=== PATIENT | female | born 1955 | race Caucasian/White ===

== ENCOUNTER 2018-10-14 09:05 | Inpatient (IN) | payer MEDICAID, OTHER ==
[~2018-10-14] VITALS: Ht 157.5 cm; Wt 60.8 kg
[2018-10-14] MEDS ORDERED: OSEL30CA PO (09:20)
[2018-10-14] MEDS ORDERED: PROSOL IH (09:20)
[2018-10-14] MEDS ORDERED: ACETAMINOPHEN 325MG TABLET PO STA (10:36)
[2018-10-14] MEDS ORDERED: ONDANSETRON HCL 4MG/2ML INJ IV STA (10:36)
[2018-10-14] MEDS ORDERED: SODIUM CHLORIDE 0.9% 1,000 ML IV ONE (10:36)
[2018-10-14] MEDS ORDERED: KETOROLAC 30MG/ML VIAL IV STA (10:36)
[2018-10-14] MEDS ORDERED: SODIUM CHLORIDE 0.9% 1000ML BAG (SEPSIS BOLUS) IV ONE (10:45)
[2018-10-14 10:47] LABS: BASOPHILS % 0.2 % (0.0-2.0); EOSINOPHILS % 0.4 % (0.0-5.0); HEMATOCRIT. 46.9 % (36.0-48.0); LYMPHOCYTES % 12.7 % (20.0-50.0); MEAN CORPUSCULAR HEMOGLOBIN 31.1 pg (28.0-32.0); MEAN CORPUSCULAR VOLUME 91.2 fL (81.0-99.0); MEAN PLATELET VOLUME 9.3 fl (7.4-10.4); MONOCYTES % 9.2 % (2.0-8.0); NEUTROPHILS % 77.5 % (40.0-76.0); PLATELET 203 x1000/uL (130-400); RED BLOOD CELL COUNT 5.15 mill/uL (4.2-5.4); RED CELL DISTRIBUTION WIDTH 12.5 % (11.6-14.6)
[2018-10-14 10:51] LABS: CHLORIDE 102 mEq/L (98-107)
[2018-10-14 10:55] LABS: ETHANOL BLOOD < 10 mg/dL
[2018-10-14 10:58] LABS: CLARITY URINE TURBID (CLEAR); COLOR URINE DARK YELLOW (YELLOW); KETONES URINE NEGATIVE (NEGATIVE); LEUKOCYTE ESTERASE URINE 1+ (NEGATIVE); NITRITE URINE NEGATIVE (NEGATIVE); OCCULT BLOOD URINE 1+ (NEGATIVE); PH URINE 5.5 (4.5-8.0); PROTEIN URINE 2+ (NEGATIVE); SPECIFIC GRAVITY URINE 1.019 (1.005-1.030)
[2018-10-14 11:01] LABS: CREATINE KINASE 164 IU/L (26-192)
[2018-10-14 11:29] LABS: *AMPHETAMINES SCREEN URINE NEGATIVE (NEGATIVE); *BARBITURATES SCREEN URINE NEGATIVE (NEGATIVE); *BENZODIAZEPINES SCREEN URINE NEGATIVE (NEGATIVE); *COCAINE SCREEN URINE NEGATIVE (NEGATIVE); CANNABINOID URINE SCREEN NEGATIVE (NEGATIVE); METHADONE URINE SCREEN NEGATIVE (NEGATIVE); OPIATES URINE SCREEN NEGATIVE (NEGATIVE); PHENCYCLIDINE URINE SCREEN NEGATIVE (NEGATIVE)
[2018-10-14] MEDS ORDERED: VANCOMYCIN 1 G PREMIX 200 ML IV SCH (12:00)
[2018-10-14] MEDS ORDERED: PIPERACILLIN/TAZ 3.375G PREMIX 50 ML IV ONE (12:00)
[2018-10-14 13:07] LABS: INR 1.1; PROTHROMBIN TIME 11.4 sec (9.1-11.1)
[2018-10-14] MEDS ORDERED: IOHEXOL-350 100 ML BOTTLE ONE (13:38)
[2018-10-14 16:30] VITALS: BP 132/75
[2018-10-14] MEDS ORDERED: FUROSEMIDE 40MG/4ML VIAL IVP NR (16:45)
[2018-10-14] MEDS ORDERED: POTASSIUM CHLORIDE 20MEQ TABLET SR PO NR (16:45)
[2018-10-14] MEDS ORDERED: ONDANSETRON HCL 4MG/2ML INJ IV PRN (16:45)
[2018-10-14] MEDS ORDERED: GUAIFENESIN 200MG/10ML SUGAR FREE UDC PO PRN (16:45)
[2018-10-14 16:46] VITALS: BP 132/75
[2018-10-14] MEDS ORDERED: IPRATROPIUM/ALBUTEROL 0.5-3(2.5)MG/3ML NEB HHN PRN (17:15)
[2018-10-14 17:23] LABS: HEPATITIS B SURFACE ANTIGEN NEGATIVE
[2018-10-14 17:52] LABS: HEPATITIS A AB IGM NEGATIVE (NEGATIVE)
[2018-10-14 18:20] LABS: BG BASE EXCESS 1.8 mmol/L (-2.0-2.0); BG CARBOXYHEMOGLOBIN 1.8 % (0.5-1.5); BG DEOXYHEMOGLOBIN 24.1 % (0.0-5.0); BG FRACTION INSPIRED OXYGEN 21; BG HCO3 ACT 28.5 mmol/L (22.0-26.0); BG METHEMOGLOBIN 0.4 % (0.0-1.5); BG OXYGEN SATURATION 75.4 % (92.0-98.5); BG OXYHEMOGLOBIN 73.7 % (94.0-97.0); BG PCO2 51.9 mmHg (35.0-45.0); BG PH 7.357 (7.350-7.450); BG PO2 36.8 mmHg (75.0-100.0); BG SAMPLE SITE LEFT RADIAL; BG TOTAL HEMOGLOBIN 15.9 g/dL (12.0-18.0); BG VENT MODE ROOM AIR
[2018-10-14] MEDS: MONTELUKAST SODIUM 10MG TABLET PO SCH (18:45)
[2018-10-14] MEDS: GUAIFENESIN-DM 200MG-20MG/10ML UDC PO PRN ×2 (18:45→18:50)
[2018-10-14] MEDS: ENOXAPARIN 40MG/0.4ML SYR SUBCUT SCH (18:50)
[2018-10-14] MEDS: NICOTINE 14MG PATCH TD SCH (18:50)
[2018-10-14] MEDS: PIPERACILLIN/TAZ 3.375G PREMIX 50 ML IV SCH (19:09)
[2018-10-14 20:00] VITALS: BP 117/69
[2018-10-14] MEDS: IPRATROPIUM/ALBUTEROL 0.5-3(2.5)MG/3ML NEB HHN SCH (20:21)
[2018-10-14] MEDS: BUDESONIDE 0.5MG/2ML NEB HHN SCH (20:21)
[2018-10-15] VITALS: BP 110/62
[2018-10-15] MEDS: IPRATROPIUM/ALBUTEROL 0.5-3(2.5)MG/3ML NEB HHN SCH ×6 (00:40→22:04)
[2018-10-15] MEDS: ACETAMINOPHEN 325MG TABLET PO PRN (03:53)
[2018-10-15] MEDS: GUAIFENESIN-DM 200MG-20MG/10ML UDC PO PRN (03:56)
[2018-10-15] MEDS: PIPERACILLIN/TAZ 3.375G PREMIX 50 ML IV SCH ×4 (03:59→18:23)
[2018-10-15 04:00] VITALS: BP 107/65
[2018-10-15 07:04] LABS: BASOPHILS % 0.3 % (0.0-2.0); EOSINOPHILS % 0.7 % (0.0-5.0); HEMATOCRIT. 41.3 % (36.0-48.0); HEMOGLOBIN. 14.1 g/dL (12.0-16.0); LYMPHOCYTES % 14.7 % (20.0-50.0); MEAN CORPUSCULAR HEMOGLOBIN 31.2 pg (28.0-32.0); MEAN CORPUSCULAR VOLUME 91.1 fL (81.0-99.0); MEAN PLATELET VOLUME 9.6 fl (7.4-10.4); MONOCYTES % 7.6 % (2.0-8.0); NEUTROPHILS % 76.7 % (40.0-76.0); PLATELET 247 x1000/uL (130-400); RED BLOOD CELL COUNT 4.53 mill/uL (4.2-5.4); RED CELL DISTRIBUTION WIDTH 13.1 % (11.6-14.6)
[2018-10-15 07:20] LABS: CHLORIDE 101 mEq/L (98-107)
[2018-10-15] MEDS: BUDESONIDE 0.5MG/2ML NEB HHN SCH ×2 (08:39→22:04)
[2018-10-15] MEDS: NICOTINE 14MG PATCH TD SCH (09:01)
[2018-10-15 09:40] LABS: BG CARBOXYHEMOGLOBIN 1.2 % (0.5-1.5); BG FRACTION INSPIRED OXYGEN 21; BG HCO3 ACT 31.2 mmol/L (22.0-26.0); BG METHEMOGLOBIN 0.1 % (0.0-1.5); BG OXYGEN SATURATION 80.7 % (92.0-98.5); BG OXYHEMOGLOBIN 79.7 % (94.0-97.0); BG PCO2 47.3 mmHg (35.0-45.0); BG PH 7.437 (7.350-7.450); BG PO2 39.8 mmHg (75.0-100.0); BG SAMPLE SITE RIGHT BRACHIAL; BG TOTAL HEMOGLOBIN 13.8 g/dL (12.0-18.0); BG VENT MODE ROOM AIR
[2018-10-15 12:00] VITALS: BP 102/52
[2018-10-15] MEDS ORDERED: POTASSIUM CHLORIDE INJ 40 MEQ in SODIUM CHLORIDE 0.9% 230 ML IV NR (14:30)
[2018-10-15 16:00] VITALS: BP 111/54
[2018-10-15] MEDS: ENOXAPARIN 40MG/0.4ML SYR SUBCUT SCH (18:22)
[2018-10-15] MEDS: MONTELUKAST SODIUM 10MG TABLET PO SCH (18:23)
[2018-10-15 20:00] VITALS: BP 129/70
[2018-10-15] MEDS: POTASSIUM CHLORIDE 20MEQ TABLET SR PO SCH (21:26)
[2018-10-16] VITALS: BP 105/82
[2018-10-16] MEDS: PIPERACILLIN/TAZ 3.375G PREMIX 50 ML IV SCH ×3 (01:12→12:05)
[2018-10-16 04:00] VITALS: BP 130/81
[2018-10-16] MEDS: IPRATROPIUM/ALBUTEROL 0.5-3(2.5)MG/3ML NEB HHN SCH ×5 (05:20→21:08)
[2018-10-16 07:52] VITALS: BP 131/73
[2018-10-16] MEDS: NICOTINE 14MG PATCH TD SCH (09:29)
[2018-10-16] MEDS: POTASSIUM CHLORIDE 20MEQ TABLET SR PO SCH ×2 (09:29→21:13)
[2018-10-16] MEDS: BUDESONIDE 0.5MG/2ML NEB HHN SCH ×2 (09:52→21:09)
[2018-10-16 09:54] LABS: HEMATOCRIT. 39.1 % (36.0-48.0); HEMOGLOBIN. 13.3 g/dL (12.0-16.0); MEAN CORPUSCULAR HEMOGLOBIN 30.9 pg (28.0-32.0); MEAN CORPUSCULAR VOLUME 91.1 fL (81.0-99.0); MEAN PLATELET VOLUME 9.1 fl (7.4-10.4); PLATELET 279 x1000/uL (130-400); RED CELL DISTRIBUTION WIDTH 12.8 % (11.6-14.6)
[2018-10-16 10:04] LABS: CHLORIDE 104 mEq/L (98-107)
[2018-10-16 12:17] VITALS: BP 122/63
[2018-10-16 16:20] LABS: ATYPICAL LYMPHOCYTES 2; PLATELET ESTIMATE NORMAL
[2018-10-16 16:27] VITALS: BP 144/66
[2018-10-16] MEDS: LEVOFLOXACIN 750MG PREMIX 150 ML IV SCH (17:59)
[2018-10-16] MEDS: ENOXAPARIN 40MG/0.4ML SYR SUBCUT SCH (17:59)
[2018-10-16] MEDS: MONTELUKAST SODIUM 10MG TABLET PO SCH (17:59)
[2018-10-16 20:00] VITALS: BP 143/75
[2018-10-17] VITALS: BP 135/86
[2018-10-17] MEDS: ACETYLCYSTEINE 100MG/ML 10% VIAL 4ML INH SCH (00:56)
[2018-10-17] MEDS: IPRATROPIUM/ALBUTEROL 0.5-3(2.5)MG/3ML NEB HHN SCH ×5 (00:56→21:06)
[2018-10-17] MEDS: ACETAMINOPHEN 325MG TABLET PO PRN ×2 (03:02→09:19)
[2018-10-17 04:00] VITALS: BP 132/66
[2018-10-17 06:08] LABS: HEMATOCRIT. 38.3 % (36.0-48.0); HEMOGLOBIN. 12.9 g/dL (12.0-16.0); MEAN CORPUSCULAR HEMOGLOBIN 30.8 pg (28.0-32.0); MEAN CORPUSCULAR VOLUME 91.3 fL (81.0-99.0); MEAN PLATELET VOLUME 8.7 fl (7.4-10.4); PLATELET 283 x1000/uL (130-400)
[2018-10-17 07:36] LABS: CHLORIDE 102 mEq/L (98-107)
[2018-10-17 08:00] VITALS: BP 134/74
[2018-10-17] MEDS: BUDESONIDE 0.5MG/2ML NEB HHN SCH ×2 (08:00→21:03)
[2018-10-17] MEDS: POTASSIUM CHLORIDE 20MEQ TABLET SR PO SCH ×2 (09:20→20:46)
[2018-10-17] MEDS: NICOTINE 14MG PATCH TD SCH (09:20)
[2018-10-17 09:35] LABS: BG BASE EXCESS 2.3 mmol/L (-2.0-2.0); BG CARBOXYHEMOGLOBIN 1.2 % (0.5-1.5); BG DEOXYHEMOGLOBIN 17.7 % (0.0-5.0); BG FRACTION INSPIRED OXYGEN 21; BG HCO3 ACT 26.5 mmol/L (22.0-26.0); BG METHEMOGLOBIN 0.1 % (0.0-1.5); BG OXYGEN SATURATION 82.1 % (92.0-98.5); BG PCO2 39.8 mmHg (35.0-45.0); BG PH 7.441 (7.350-7.450); BG PO2 42.6 mmHg (75.0-100.0); BG SAMPLE SITE RIGHT RADIAL; BG TOTAL HEMOGLOBIN 14.2 g/dL (12.0-18.0); BG VENT MODE ROOM AIR
[2018-10-17] MEDS: GUAIFENESIN-DM 200MG-20MG/10ML UDC PO PRN (10:14)
[2018-10-17 11:39] LABS: PLATELET ESTIMATE NORMAL
[2018-10-17 12:16] VITALS: BP 134/69
[2018-10-17 16:00] VITALS: BP 148/80
[2018-10-17] MEDS: ENOXAPARIN 40MG/0.4ML SYR SUBCUT SCH (16:39)
[2018-10-17] MEDS: LEVOFLOXACIN 750MG PREMIX 150 ML IV SCH (16:39)
[2018-10-17] MEDS: MONTELUKAST SODIUM 10MG TABLET PO SCH (16:39)
[2018-10-17 20:00] VITALS: BP 137/77
[2018-10-17] MEDS: BLOOD SUGAR DIAGNOSTIC STRIP TEST SCH (23:08)
[2018-10-18] VITALS: BP 138/77
[2018-10-18] MEDS: ACETYLCYSTEINE 100MG/ML 10% VIAL 4ML INH SCH (00:09)
[2018-10-18] MEDS: IPRATROPIUM/ALBUTEROL 0.5-3(2.5)MG/3ML NEB HHN SCH ×6 (00:09→20:22)
[2018-10-18] MEDS: ACETAMINOPHEN 325MG TABLET PO PRN (00:36)
[2018-10-18 04:00] VITALS: BP 121/75
[2018-10-18] MEDS: BLOOD SUGAR DIAGNOSTIC STRIP TEST SCH ×2 (06:00→14:00)
[2018-10-18 06:50] LABS: HEMATOCRIT. 39.1 % (36.0-48.0); HEMOGLOBIN. 13.1 g/dL (12.0-16.0); MEAN CORPUSCULAR HEMOGLOBIN 30.8 pg (28.0-32.0); MEAN CORPUSCULAR VOLUME 91.6 fL (81.0-99.0); MEAN PLATELET VOLUME 8.8 fl (7.4-10.4); PLATELET 291 x1000/uL (130-400); RED BLOOD CELL COUNT 4.27 mill/uL (4.2-5.4)
[2018-10-18 06:54] LABS: CHLORIDE 103 mEq/L (98-107)
[2018-10-18] MEDS: NICOTINE 14MG PATCH TD SCH (08:27)
[2018-10-18] MEDS: POTASSIUM CHLORIDE 20MEQ TABLET SR PO SCH ×2 (08:28→20:32)
[2018-10-18 12:00] VITALS: BP_SYST 102; BP_SYST 136; BP_DIAS 70; BP_DIAS 77
[2018-10-18 13:46] LABS: PLATELET ESTIMATE NORMAL
[2018-10-18] MEDS: LEVOFLOXACIN 750MG PREMIX 150 ML IV SCH (15:33)
[2018-10-18 15:54] LABS: BG BASE EXCESS 2.8 mmol/L (-2.0-2.0); BG CARBOXYHEMOGLOBIN 1.4 % (0.5-1.5); BG FRACTION INSPIRED OXYGEN 21; BG HCO3 ACT 26.5 mmol/L (22.0-26.0); BG METHEMOGLOBIN 0.2 % (0.0-1.5); BG OXYGEN SATURATION 88.8 % (92.0-98.5); BG OXYHEMOGLOBIN 87.4 % (94.0-97.0); BG PCO2 37.9 mmHg (35.0-45.0); BG PH 7.463 (7.350-7.450); BG PO2 50.5 mmHg (75.0-100.0); BG SAMPLE SITE LEFT RADIAL; BG TOTAL HEMOGLOBIN 14.2 g/dL (12.0-18.0); BG VENT MODE ROOM AIR
[2018-10-18 16:00] VITALS: BP 141/78
[2018-10-18] MEDS: ENOXAPARIN 40MG/0.4ML SYR SUBCUT SCH (16:38)
[2018-10-18] MEDS: MONTELUKAST SODIUM 10MG TABLET PO SCH (16:38)
[2018-10-18 20:00] VITALS: BP 138/62
[2018-10-19] VITALS: BP 136/65
[2018-10-19] MEDS: IPRATROPIUM/ALBUTEROL 0.5-3(2.5)MG/3ML NEB HHN SCH ×4 (00:54→12:15)
[2018-10-19 04:00] VITALS: BP 132/67
[2018-10-19] MEDS: BLOOD SUGAR DIAGNOSTIC STRIP TEST SCH (05:46)
[2018-10-19 06:59] LABS: HEMATOCRIT. 39.6 % (36.0-48.0); MEAN CORPUSCULAR HEMOGLOBIN 30.3 pg (28.0-32.0); MEAN CORPUSCULAR VOLUME 92.1 fL (81.0-99.0); MEAN PLATELET VOLUME 8.4 fl (7.4-10.4); PLATELET 315 x1000/uL (130-400); RED CELL DISTRIBUTION WIDTH 13.3 % (11.6-14.6)
[2018-10-19 07:06] LABS: CHLORIDE 103 mEq/L (98-107)
[2018-10-19 08:00] VITALS: BP 123/71
[2018-10-19] MEDS: POTASSIUM CHLORIDE 20MEQ TABLET SR PO SCH (09:29)
[2018-10-19] MEDS: NICOTINE 14MG PATCH TD SCH (09:29)
[2018-10-19 13:51] LABS: PLATELET ESTIMATE NORMAL
[2018-10-19 14:54] VITALS: BP 123/71
== END 2018-10-19 15:30 | disposition home or self-care (01) | DRG 720 ==
LOC: ER 09:20 → 5WST 12:40 → EDBEDREQTM 12:44 → EDBEDREQSVC 12:44 → EDBEDREQ 12:44 → ENRESERV 14:20
PROVIDERS: ADMIT Internal Medicine Geriatric Medicine; ATTEND Internal Medicine Geriatric Medicine
DX: A41.9 Sepsis, unspecified organism (principal); J96.00 Acute respiratory failure, unspecified whether with hypoxia or hypercapnia; J18.9 Pneumonia, unspecified organism; Z99.81 Dependence on supplemental oxygen; E44.0 Moderate protein-calorie malnutrition; J98.9 Respiratory disorder, unspecified; Z68.26 Body mass index [BMI] 26.0-26.9, adult; R74.0 Nonspecific elevation of levels of transaminase and lactic acid dehydrogenase [LDH]; R17 Unspecified jaundice; F17.210 Nicotine dependence, cigarettes, uncomplicated; E11.9 Type 2 diabetes mellitus without complications; N39.0 Urinary tract infection, site not specified; I25.10 Atherosclerotic heart disease of native coronary artery without angina pectoris; E87.6 Hypokalemia; I25.2 Old myocardial infarction; Z80.9 Family history of malignant neoplasm, unspecified; Z86.73 Personal history of transient ischemic attack (TIA), and cerebral infarction without residual deficits; Z98.891 History of uterine scar from previous surgery; Z90.49 Acquired absence of other specified parts of digestive tract; A49.8 Other bacterial infections of unspecified site; J44.9 Chronic obstructive pulmonary disease, unspecified
CPT/HCPCS: 36415; 36600; 71045; 71275; 76700; 80048; 80305; 82375; 82550; 82805; 82962; 83036; 83605; 83735; 83880; 84145; 84484; 86705; 86709; 86803; 86850; 86900; 87070; 87077; 87186; 87340; 87804; 93005; 93306; 93970; 94640; 94667; 96365; 96375; 97161; 99285; C1893; G0482; J1650; J1885; J1940; J1956; J2405; J2543; J3370; J3480; J7030; J7050; J7608; J7620; J7626; Q9967

== ENCOUNTER 2022-08-03 12:34 | Inpatient (IN) | payer MEDICAID, MEDICARE ==
[~2022-08-03] VITALS: Ht 160 cm; Wt 58.6 kg
[~2022-08-03 12:34] MED LIST: OSEL30CA PO; PROSOL IH
[2022-08-03] MEDS ORDERED: ATORVASTATIN CALCIUM 40MG TABLET PO SCH (13:15)
[2022-08-03] MEDS ORDERED: ASPIRIN 325MG TABLET PO NR (13:15)
[2022-08-03] MEDS ORDERED: IOHEXOL-350 100 ML BOTTLE ONE (13:56)
[2022-08-03 14:22] LABS: BASOPHILS % 0.2 % (0.0-2.0); EOSINOPHILS % 2.5 % (0.0-5.0); HEMATOCRIT. 50.3 % (36.0-48.0); HEMOGLOBIN. 17.3 g/dL (12.0-16.0); MEAN CORPUSCULAR VOLUME 90.1 fL (81.0-99.0); MEAN PLATELET VOLUME 8.5 fl (7.4-10.4); MONOCYTES % 6.1 % (2.0-8.0); NEUTROPHILS % 52.2 % (40.0-76.0); PLATELET 205 x1000/uL (130-400); RED BLOOD CELL COUNT 5.58 mill/uL (4.2-5.4); RED CELL DISTRIBUTION WIDTH 12.6 % (11.6-14.6)
[2022-08-03 14:28] LABS: CHLORIDE 103 mEq/L (98-107)
[2022-08-03 14:34] LABS: CLARITY URINE CLEAR (CLEAR); COLOR URINE YELLOW (YELLOW); KETONES URINE NEGATIVE (NEGATIVE); LEUKOCYTE ESTERASE URINE TRACE (NEGATIVE); NITRITE URINE NEGATIVE (NEGATIVE); OCCULT BLOOD URINE NEGATIVE (NEGATIVE); PH URINE 7.5 (4.5-8.0); PROTEIN URINE NEGATIVE (NEGATIVE); SPECIFIC GRAVITY URINE 1.018 (1.005-1.030)
[2022-08-03 14:38] LABS: ETHANOL BLOOD < 10 mg/dL
[2022-08-03 15:00] LABS: *AMPHETAMINES SCREEN URINE NEGATIVE (NEGATIVE); *BARBITURATES SCREEN URINE NEGATIVE (NEGATIVE); *BENZODIAZEPINES SCREEN URINE NEGATIVE (NEGATIVE); *COCAINE SCREEN URINE NEGATIVE (NEGATIVE); CANNABINOID URINE SCREEN NEGATIVE (NEGATIVE); METHADONE URINE SCREEN NEGATIVE (NEGATIVE); OPIATES URINE SCREEN NEGATIVE (NEGATIVE); PHENCYCLIDINE URINE SCREEN NEGATIVE (NEGATIVE)
[2022-08-03] MEDS ORDERED: CLOPIDOGREL 75MG TABLET PO NR (15:30)
[2022-08-03 20:00] VITALS: BP 163/74
[2022-08-03] MEDS ORDERED: DEXTROSE 50% WATER 50ML SYRINGE IV PRN (21:15)
[2022-08-03] MEDS ORDERED: PNEUMOCOCCAL 23-VAL P-SAC VAC 0.5 ML IM ONE (23:30)
[2022-08-04] VITALS: BP 127/67
[2022-08-04] MEDS ORDERED: ACETAMINOPHEN 325MG TABLET PO PRN ×2 (00:30)
[2022-08-04] MEDS ORDERED: CLONIDINE 0.1MG TABLET PO PRN (00:30)
[2022-08-04] MEDS ORDERED: MAGNESIUM/ALUMINUM HYDROXIDE/SIMETHICONE 30ML UDC PO PRN (00:30)
[2022-08-04] MEDS ORDERED: DIPHENHYDRAMINE 50MG/ML VIAL IV PRN (00:30)
[2022-08-04] MEDS ORDERED: DEXTROSE 50% WATER 50ML SYRINGE IV PRN (00:30)
[2022-08-04] MEDS ORDERED: ZOLPIDEM TARTRATE 5MG TABLET PO PRN (00:30)
[2022-08-04] MEDS ORDERED: ONDANSETRON HCL 4MG/2ML INJ IV PRN (00:30)
[2022-08-04 04:00] VITALS: BP 137/87
[2022-08-04] MEDS: SODIUM CHLORIDE 0.9% INJ 3ML FLUSH IVF SCH ×3 (06:10→21:52)
[2022-08-04] MEDS: BLOOD SUGAR DIAGNOSTIC STRIP TEST SCH ×4 (06:10→21:20)
[2022-08-04] MEDS ORDERED: BLOOD SUGAR DIAGNOSTIC STRIP TEST SCH (07:40)
[2022-08-04 08:00] VITALS: BP 136/60
[2022-08-04] MEDS ORDERED: INSULIN LISPRO 100 UNITS/ML SUBCUT SCH (08:10)
[2022-08-04] MEDS: INSULIN LISPRO 100 UNITS/ML SUBCUT SCH ×4 (08:10→21:51)
[2022-08-04] MEDS: METFORMIN HCL 500MG TABLET PO SCH ×2 (09:01→17:32)
[2022-08-04] MEDS: ASPIRIN 81MG EC TABLET PO SCH (09:01)
[2022-08-04] MEDS ORDERED: BISACODYL 10MG SUPP PR NR (11:00)
[2022-08-04] MEDS ORDERED: LACTULOSE 20G/30ML UDC PO NR (11:00)
[2022-08-04 12:00] VITALS: BP 133/69
[2022-08-04 16:00] VITALS: BP 162/73
[2022-08-04 20:00] VITALS: BP 132/69
[2022-08-04] MEDS ORDERED: ATORVASTATIN CALCIUM 40MG TABLET PO SCH (21:00)
[2022-08-04] MEDS: AMLODIPINE 2.5MG TABLET PO SCH (21:50)
[2022-08-05] VITALS: BP 136/72
[2022-08-05 04:00] VITALS: BP 139/71
[2022-08-05] MEDS: BLOOD SUGAR DIAGNOSTIC STRIP TEST SCH (06:07)
[2022-08-05] MEDS: SODIUM CHLORIDE 0.9% INJ 3ML FLUSH IVF SCH (06:08)
[2022-08-05] MEDS: INSULIN LISPRO 100 UNITS/ML SUBCUT SCH (06:08)
[2022-08-05 08:00] VITALS: BP 144/70
[2022-08-05] MEDS: AMLODIPINE 2.5MG TABLET PO SCH (08:59)
[2022-08-05] MEDS: METFORMIN HCL 500MG TABLET PO SCH (08:59)
[2022-08-05] MEDS: ASPIRIN 81MG EC TABLET PO SCH (08:59)
[2022-08-05] MEDS ORDERED: CLOPIDOGREL 75MG TABLET PO SCH (09:00)
[2022-08-05 12:00] VITALS: BP 123/69
[2022-08-05 15:45] VITALS: BP 129/80
[2022-08-05] MEDS ORDERED: ATORVASTATIN CALCIUM 40MG TABLET PO SCH (21:00)
== END 2022-08-05 16:10 | disposition home health service (06) | DRG 65 ==
LOC: ER 12:34 → 7WST 15:32 → EDBEDREQ 15:39 → EDBEDREQTM 15:39 → ENRESERV 17:59
PROVIDERS: ADMIT Internal Medicine; ATTEND Internal Medicine
PROC: 4A00X4Z Measurement of Central Nervous Electrical Activity, External Approach (ICD-10-PCS; principal; 2022-08-05)
DX: I63.9 Cerebral infarction, unspecified (principal); G81.94 Hemiplegia, unspecified affecting left nondominant side; E11.9 Type 2 diabetes mellitus without complications; E78.00 Pure hypercholesterolemia, unspecified; I10 Essential (primary) hypertension; R29.701 NIHSS score 1; F17.210 Nicotine dependence, cigarettes, uncomplicated; Z86.73 Personal history of transient ischemic attack (TIA), and cerebral infarction without residual deficits; Z90.49 Acquired absence of other specified parts of digestive tract; Z79.899 Other long term (current) drug therapy; Z79.02 Long term (current) use of antithrombotics/antiplatelets; Z79.82 Long term (current) use of aspirin; Z79.84 Long term (current) use of oral hypoglycemic drugs
CPT/HCPCS: 36415; 70496; 70498; 70551; 71045; 80053; 80061; 80305; 80320; 81003; 82962; 83036; 85025; 90732; 93005; 93306; 95816; 97162; 99291; J1815; Q9967; G0480